=== PATIENT | female | born 1960 | race Caucasian/White ===

== ENCOUNTER 2018-07-19 00:56 | Outpatient (CLI) | payer BC, SELFPAY ==
--- NOTE | 2018-07-19 07:46 | DI.US_ITS ---
SYMPTOM/DIAGNOSIS: ABD/EPIGASTRIC PAIN, R10.13 ABDOMEN ULTRASOUND: Routine examination. There are no priors for comparison. The aorta is unremarkable as is the inferior vena cava. The liver is normal in size and appearance. No hepatic mass is seen. The gallbladder is unremarkable. No stones, sludge or gallbladder wall thickening is seen. The common duct is within normal limits at .3 cm. The pancreas, kidneys and spleen are unremarkable except for right renal cysts, the largest measuring 1.3 cm. No free fluid is seen in the abdomen. IMPRESSION: Unremarkable abdominal ultrasound.
== END 2018-07-19 01:16 ==
PROVIDERS: PCP Emergency Medicine; Visit Provider Emergency Medicine
DX: R10.13 Epigastric pain (principal)
CPT/HCPCS: 76700

== ENCOUNTER 2019-03-27 08:20 | Outpatient (CLI) | payer BC, SELFPAY ==
[2019-03-27 09:45] LABS: TSH (W/Ref FT4) 2.62 uIU/mL (0.36-3.74)
== END 2019-03-27 08:40 ==
PROVIDERS: PCP Emergency Medicine; Visit Provider Nurse Practitioner Women's Health
DX: Z13.29 Encounter for screening for other suspected endocrine disorder (principal)
CPT/HCPCS: 36415; 84443

== ENCOUNTER 2020-09-17 16:05 | Outpatient (REF) | payer BC, SELFPAY ==
[2020-09-19 11:49] LABS: COVID-19 RT-PCR UVMMC Result Negative (Negative)
== END 2020-09-17 16:06 | disposition home or self-care (01) ==
LOC: LBN 16:05
PROVIDERS: PCP Emergency Medicine; Visit Provider Nurse Practitioner Family
DX: Z20.822 Contact with and (suspected) exposure to COVID-19 (principal)
CPT/HCPCS: U0003

== ENCOUNTER 2020-12-30 11:12 | Outpatient (REF) | payer SELFPAY ==
[2021-01-01 15:29] LABS: COVID-19 RT-PCR UVMMC Result Negative (Negative)
== END 2020-12-30 11:13 | disposition home or self-care (01) ==
LOC: LBN 11:12
PROVIDERS: PCP Emergency Medicine; Visit Provider Emergency Medicine
DX: Z20.822 Contact with and (suspected) exposure to COVID-19 (principal); R06.02 Shortness of breath
CPT/HCPCS: U0003

== ENCOUNTER 2021-08-14 01:11 | Outpatient (CLI) | payer OTHER, SELFPAY ==
[2021-08-14 13:27] LABS: Calculated LDL 147 mg/dL (<100); Cholesterol 240 mg/dL (<200); HDL Cholesterol 81 mg/dL (40-60); Triglyceride 62 mg/dL (<150)
== END 2021-08-14 01:12 | disposition home or self-care (01) ==
LOC: LOS 01:11
PROVIDERS: PCP Family Medicine; Visit Provider Family Medicine
DX: Z00.00 Encounter for general adult medical examination without abnormal findings (principal); Z13.220 Encounter for screening for lipoid disorders
CPT/HCPCS: 36415; 80061

== ENCOUNTER 2022-07-07 02:50 | Outpatient (CLI) | payer OTHER, SELFPAY ==
[2022-07-07 09:05] LABS: Absolute Basophil Count 0.04 10^3/uL (0.0-0.2); Absolute Eosinophil Count 0.21 10^3/uL (0.0-0.7); Absolute Lymphocyte Count 1.42 10^3/uL (1.2-3.4); Absolute Neutrophil Count 2.12 10^3/uL (1.2-6.7); Eosinophils % 5.1; HCT 38.4 % (36.0-46.0); HGB 12.7 g/dL (11.2-15.7); Lymphocytes % 34.7; MCH 31.1 pg (27.0-33.0); MCHC 33.1 % (32.0-36.0); MCV 94 fL (80-95); MPV 10.4 fL (8.0-11.0); Monocytes % 7.3; Neutrophils % 51.9; Platelet Count 279 10^3/uL (130-400); RBC 4.08 10^6/uL (3.93-5.22); RDW 12.4 % (11.7-14.6); RDW-SD 42.9 fL; WBC 4.09 10^3/uL (4.4-10.8)
== END 2022-07-07 02:51 | disposition home or self-care (01) ==
LOC: LBO 02:50
PROVIDERS: PCP Family Medicine; Visit Provider Family Medicine
DX: D72.819 Decreased white blood cell count, unspecified (principal)
CPT/HCPCS: 36415; 85025